=== PATIENT | male | born 1970 | race Caucasian/White ===

== ENCOUNTER 2016-07-23 01:30 | Emergency (ER) | payer OTHER ==
[2016-07-23] MEDS ORDERED: SULFAMETHOXAZOLE 800 MG/TRIMETHOPRIM 160 MG TABLET ONE (02:09)
[2016-07-23] MEDS ORDERED: CEPHALEXIN 500 MG CAPSULE ONE (02:09)
== END 2016-07-23 02:28 | disposition home or self-care (01) ==
LOC: ED 01:30
DX: H60.12 Cellulitis of left external ear (principal); F17.210 Nicotine dependence, cigarettes, uncomplicated
CPT/HCPCS: 99283 ×2; A9270 ×2